=== PATIENT | female | born 1955 | race African-American/Black ===

== ENCOUNTER 2016-05-19 22:47 | Emergency (ER) | payer MEDICARE, OTHER ==
[~2016-05-19] VITALS: Ht 154.9 cm; Wt 56.7 kg
[~2016-05-19 22:47] MED LIST: AMLO10TA2 PO; AMLO5TAB4 PO; Albuterol Sulfate NEB; CELE200C PO; CYCL10TA2 PO; DICL75TA PO; ESCI10TA10 PO; LISI1TAB5 PO; MULT-18 PO; NITR0.4T6 SL; OMEP40CA5 PO; RANI150C PO; TRAZ100T12 PO
[2016-05-20] MEDS ORDERED: METOCLOPRAMIDE HCL 10 MG/2 ML VIAL. IV ONE (00:45)
[2016-05-20] MEDS ORDERED: IV NORMAL SALINE 1000ML BAG 1,000 ML IV SCH (00:45)
[2016-05-20] MEDS ORDERED: DIPHENHYDRAMINE 50 MG/ML VIAL IVP ONE (00:45)
[2016-05-20] MEDS ORDERED: FENTANYL PF 100 MCG/2 ML VIAL. IV ONE (00:45)
[2016-05-20 00:53] LABS: BASO % 1 % (0-3); EOS % 0 % (0-3); HEMATOCRIT 41.2 % (36.0-47.0); HEMOGLOBIN 13.4 g/dL (12.0-15.5); LYMPH # 1.4 x10^3/uL (1.0-4.8); LYMPH % 19 % (24-48); MEAN CORPUSCULAR HEMOGLOBIN 29 pg (25-35); MEAN CORPUSCULAR HGB CONC 32 g/dL (31-37); MEAN CORPUSCULAR VOLUME 90 fL (79-100); MONO % 12 % (0-9); NEUT % 68 % (31-73); PLATELET COUNT 246 x10^3/uL (140-400); RED BLOOD COUNT 4.58 x10^6/uL (3.50-5.40); RED CELL DISTRIBUTION WIDTH 15.4 % (11.5-14.5); WHITE BLOOD COUNT 7.2 x10^3/uL (4.0-11.0)
[2016-05-20 00:54] LABS: BILIRUBIN,URINE NEGATIVE (NEG); GLUCOSE,URINE NEGATIVE (NEG); NITRITE,URINE NEGATIVE (NEG); PROTEIN,URINE 100 mg/dL (NEG-TRACE); UROBILINOGEN,URINE 0.2 mg/dL (0.2 mg/dL)
[2016-05-20 01:00] LABS: BARBITURATES NEG (NEG); BENZODIAZEPINES NEG (NEG); CANNABINOIDS POS (NEG); COCAINE NEG (NEG); ETHANOL, URINE NEG (NEG); METHADONE NEG (NEG); OPIATES NEG (NEG); PHENCYCLIDINE NEG (NEG)
[2016-05-20 01:14] LABS: WBC,URINE OCC /HPF (0-4)
[2016-05-20 01:15] LABS: BACTERIA,URINE 0 /HPF (0-FEW); SQUAMOUS EPITHELIAL CELL,UR FEW /LPF
--- NOTE | 2016-05-20 01:25 | PHYS DOC ---
Past Medical History Past Medical History: High Cholesterol, Hypertension, Sciatica Additional Past Medical Histor: uterine fibroids Past Surgical History: Other Additional Past Surgical Histo: bowel resection Alcohol Use: Occasionally Drug Use: Marijuana Adult General Chief Complaint Chief Complaint: NAUSEA/VOMITING/DIARRHA HPI HPI Patient is a 60 year old female who presents the emergency room with a complaint of left-sided abdominal pain, nausea and vomiting that began approximately 24 hours ago. She also has a complaint of a rash on her left thigh. Patient is not very knowledgeable as to her health history. She states that she had a colon resection approximate 6 years ago. She does not know why she had to have a colon resection. She denies any known history of bowel obstructions. She denies any other abdominal surgeries. Patient denies bloody or bilious emesis. She reports persistent nausea. She denies flank pain, dysuria or hematuria. She denies diarrhea or constipation. Last by mouth intake was approximately 9 PM. Last bowel movement was approximately 4 PM. Review of Systems Review of Systems Constitutional: Denies fever or chills [] Eyes: Denies change in visual acuity, redness, or eye pain [] HENT: Denies nasal congestion or sore throat [] Respiratory: Denies cough or shortness of breath [] Cardiovascular: No additional information not addressed in HPI [] GI: Denies abdominal pain, nausea, vomiting, bloody stools or diarrhea [] : Denies dysuria or hematuria [] Musculoskeletal: Denies back pain or joint pain [] Integument: Denies rash or skin lesions [] Neurologic: Denies headache, focal weakness or sensory changes [] Endocrine: Denies polyuria or polydipsia [] Current Medications Current Medications Current Medications Medications (Trade) Dose Ordered Sig/[facility] Start Time Stop Time Status Last Admin Dose Admin Diphenhydramine HCl (Benadryl) 25 mg 1X ONCE 05/20/16 00:45 05/20/16 00:46 DC 05/20/16 00:43 25 MG Fentanyl Citrate (Fentanyl 2ml Vial) 50 mcg 1X ONCE 05/20/16 00:45 05/20/16 00:46 DC 05/20/16 00:42 50 MCG Metoclopramide HCl (Reglan) 10 mg 1X ONCE 05/20/16 00:45 05/20/16 00:46 DC 05/20/16 00:43 10 MG Potassium Chloride (Klor-Con) 40 meq 1X ONCE 05/20/16 02:00 05/20/16 02:01 Sodium Chloride (Iv Sodium Chloride 0.9% 1000ml Bag) 1,000 ml @ 1,000 mls/hr Q1H 05/20/16 00:45 05/20/16 01:44 DC 05/20/16 00:43 1,000 MLS/HR Allergies Allergies Allergies Coded Allergies Type Severity Reaction Last Updated Verified codeine Allergy Severe codeine 12/31/14 Yes Physical Exam Physical Exam Constitutional: Well developed, well nourished, mild distress, non-toxic appearance. Patient strike evening. Patient does occasionally produce some clear mucus that she says is coming from her stomach. HENT: Normocephalic, atraumatic, bilateral external ears normal, oropharynx moist, no oral exudates, nose normal. [] Eyes: PERRLA, EOMI, conjunctiva normal, no discharge. [] Neck: Normal range of motion, no tenderness, supple, no stridor. [] Cardiovascular:Heart rate regular rhythm, no murmur [] Lungs & Thorax: Bilateral breath sounds clear to auscultation [] Abdomen: Abdomen is soft and nondistended. There are normoactive bowel sounds in all 4 quadrants. There is no palpable defect to the abdominal wall or pulsatile mass. Patient complains of pain in the left upper and lower quadrants with palpation. There is voluntary guarding during physical exam. Patient denies rebound. Negative heel tap. Skin: Approximate silver dollar sized cluster of vesicular lesions to patient's left anterior thigh below the inguinal crease. There is a slightly erythematous base. There is no purulent drainage, indurated tissue or lymphangitis associated with this. Back: Back is normal in appearance. Negative CVA tenderness. Extremities: No tenderness, no cyanosis, no clubbing, ROM intact, no edema. [] Neurologic: Alert and oriented X 3, normal motor function, normal sensory function, no focal deficits noted. [] Psychologic: Affect normal, judgement normal, mood normal. [] Current Patient Data Vital Signs Vital Signs Date Time Temp Pulse Resp B/P Pulse Ox O2 Delivery O2 Flow Rate FiO2 05/20/16 00:42 16 Room Air 05/19/16 22:50 99.8 67 181/84 100 99.8 Lab Values Laboratory Tests Test 05/19/16 23:03 05/19/16 23:15 05/20/16 01:15 White Blood Count 7.2x10^3/uL (4.0-11.0) Red Blood Count 4.58x10^6/uL (3.50-5.40) Hemoglobin 13.4g/dL (12.0-15.5) Hematocrit 41.2% (36.0-47.0) Mean Corpuscular Volume 90fL (79-100) Mean Corpuscular Hemoglobin 29pg (25-35) Mean Corpuscular Hemoglobin Concent 32g/dL (31-37) Red Cell Distribution Width 15.4% (11.5-14.5) H Platelet Count 246x10^3/uL (140-400) Neutrophils (%) (Auto) 68% (31-73) Lymphocytes (%) (Auto) 19% (24-48) L Monocytes (%) (Auto) 12% (0-9) H Eosinophils (%) (Auto) 0% (0-3) Basophils (%) (Auto) 1% (0-3) Neutrophils # (Auto) 4.9x10^3uL (1.8-7.7) Lymphocytes # (Auto) 1.4x10^3/uL (1.0-4.8) Monocytes # (Auto) 0.9x10^3/uL (0.0-1.1) Eosinophils # (Auto) 0.0x10^3/uL (0.0-0.7) Basophils # (Auto) 0.0x10^3/uL (0.0-0.2) Urine Collection Type Unknown Urine Color Yellow Urine Clarity Clear Urine pH 6.0 Urine Specific [place] 1.015 Urine Protein 100mg/dL (NEG-TRACE) Urine Glucose (UA) Negativemg/dL (NEG) Urine Ketones (Stick) Tracemg/dL (NEG) Urine Blood Small (NEG) Urine Nitrite Negative (NEG) Urine Bilirubin Negative (NEG) Urine Urobilinogen Dipstick 0.2mg/dL (0.2 mg/dL) Urine Leukocyte Esterase Negative (NEG) Urine RBC 6-10/HPF (0-2) Urine WBC Occ/HPF (0-4) Urine Squamous Epithelial Cells Few/LPF Urine Bacteria 0/HPF (0-FEW) Urine Hyaline Casts Few/HPF Urine Mucus Mod/LPF Urine Opiates Screen Neg (NEG) Urine Methadone Screen Neg (NEG) Urine Barbiturates Neg (NEG) Urine Phencyclidine Screen Neg (NEG) Urine Amphetamine/Methamphetamine Neg (NEG) Urine Benzodiazepines Screen Neg (NEG) Urine Cocaine Screen Neg (NEG) Urine Cannabinoids Screen Pos (NEG) Urine Ethyl Alcohol Neg (NEG) Sodium Level 136mmol/L (136-145) Potassium Level 2.6mmol/L (3.5-5.1) *L Chloride Level 94mmol/L (98-107) L Carbon Dioxide Level 28mmol/L (21-32) Anion Gap 14 (6-14) Blood Urea Nitrogen 13mg/dL (7-20) Creatinine 0.9mg/dL (0.6-1.0) Estimated GFR (Cockcroft-Gault) 77.8 BUN/Creatinine Ratio 14 (6-20) Glucose Level 131mg/dL (70-99) H Calcium Level 10.2mg/dL (8.5-10.1) H Total Bilirubin 0.5mg/dL (0.2-1.0) Aspartate Amino Transferase (AST) 23U/L (15-37) Alanine Aminotransferase (ALT) 20U/L (14-59) Alkaline Phosphatase 72U/L (46-116) Total Protein 10.0g/dL (6.4-8.2) H Albumin 4.7g/dL (3.4-5.0) Albumin/Globulin Ratio 0.9 (1.0-1.7) L Lipase 122U/L (73-393) Laboratory Tests 05/19/16 23:03 Laboratory Tests 05/20/16 01:15 EKG EKG [] Radiology/Procedures Radiology/Procedures [] Course & Med Decision Making Course & Med Decision Making 0120: Case was staffed with Dr. Huntley. He is made aware of the patient's history and physical with tests been ordered. He will assume care of the patient at this time. Signout was obtained. CT report was reviewed. See CT scan of the abdomen and pelvis revealed no acute pathology. Patient's labs were all within normal limits except for potassium level of 2.6. Patient was given 40 of potassium here in the ED and will be sent home with a prescription for potassium for 5 days. I have instructed patient on dietary changes to help increase her potassium level. Patient's labs were all within normal limits otherwise except for positive urine drug screen for marijuana. Repeat examination her abdomen at 145 revealed a soft abdomen was currently with mild tenderness to her left lower quadrant. Patient had no rebound or guarding. Patient not exhibit any signs or symptoms of be consistent with an acute surgical abdomen at this time. Dragon Disclaimer Dragon Disclaimer This electronic medical record was generated, in whole or in part, using a voice recognition dictation system. Departure Departure Impression: Primary Impression: Abdominal pain Additional Impressions: Nausea and vomiting Vesicular rash Hypokalemia Referrals: TAYA DANIEL MD (PCP) Patient Instructions: Abdominal Pain, Hypokalemia Scripts Ondansetron (Zofran Odt)4 Mg Tab.rapdis1 Tab SL Q6HRS PRN NAUSEA #12 TAB Prov:NENA HUNTLEY MD 05/20/16 Potassium Chloride 10 Meq Capsule.er20 Meq PO twice a day #20 TAB.SR Prov:NENA HUNTLEY MD 05/20/16 Problem Qualifiers DANTE ARCOS May 20, 2016 01:25 NENA HUNTLEY MD May 20, 2016 01:58
--- NOTE | 2016-05-20 01:35 | RAD ---
Examination: CT of the abdomen pelvis without contrast. HISTORY History of left-sided flank pain. COMPARISON 08/04/2015. TECHNIQUE Axial CT images of the abdomen pelvis were performed without contrast. Coronal sagittal reformats were performed. Exposure: One or more of the following dose reduction technique were utilized for this examination: 1. Automated exposure control. 2.Adjustment of MA and /or KV according to patient size. 3. Use of iterative reconstruction technique. Findings: The visualized bibasilar lungs grossly appears unremarkable. No evidence of free air identified in the abdomen. The evaluation of the solid organs is limited due to lack of IV contrast. The evaluation of the bowel is limited lack of oral contrast. There is a tiny 3 millimeter hypodensity in the right lobe of the liver, similar to prior exam, is too small to characterize. The gallbladder grossly appears unremarkable. The gallbladder is mildly distended upper of the visualized spleen, adrenals grossly appears unremarkable. The stomach is mildly distended. The visualized pancreas grossly appears unremarkable . The appendix grossly appears unremarkable. Multiple colonic diverticula identified throughout the colon. The urinary bladder is mildly distended. There is a calcified density identified in the region of the uterus measuring 3.9 x 3.1 centimeters likely a uterine fibroid, similar to prior exam. Few other calcified uterine fibroids identified. There is cortical calcification identified in the left kidney measuring 7 millimeters with minimal cortical irregularity probably due to scarring changes. No evidence of hydronephrosis. Sclerotic changes identified in the bilateral sacroiliac joint region likely due to degeneration. Moderate degenerative changes identified in the lumbar spine. Moderate aortic atherosclerosis. IMPRESSION - No acute intra-abdominal findings. - Left upper lobe renal cortical scarring changes with calcification grossly similar to prior exam. - Multiple colonic diverticula. - There is a tiny 3 millimeter hypodensity in the right lobe of the liver, similar to prior exam, is too small to characterize. Electronically signed by: Praful Goff (May 20, 2016 01:34:05)
[2016-05-20 01:37] LABS: ALBUMIN 4.7 g/dL (3.4-5.0); ALBUMIN/GLOBULIN RATIO 0.9 (1.0-1.7); CALCIUM 10.2 mg/dL (8.5-10.1); CREATININE 0.9 mg/dL (0.6-1.0); GFR 77.8; TOTAL BILIRUBIN 0.5 mg/dL (0.2-1.0)
[2016-05-20 01:39] LABS: POTASSIUM 2.6 mmol/L (3.5-5.1)
[2016-05-20 01:41] VITALS: BP 176/75
[2016-05-20] MEDS ORDERED: POTA10CA PO (01:58)
[2016-05-20] MEDS ORDERED: ONDA4TAB10 SL (01:58)
[2016-05-20] MEDS ORDERED: POTASSIUM CHLORIDE 20 MEQ TABLET.ER. PO ONE (02:00)
--- NOTE | 2016-05-20 07:04 | EKG ---
[facility] [address] [place] [address] Test Date: 2016-05-19 Test Time: 23:05:55 Pat Name: FIGUEROA LUNA Department: Room: Gender: F Prop Sawyer: : 1955 Requested By: NENA NYE Order Number: [id number] Reading MD: Gonzalo Meeks Measurements Intervals [place] Rate: 61 P: 30 MA: 158 QRS: 35 QRSD: 72 T: 30 QT: 452 QTc: 461 Interpretive Statements SINUS RHYTHM LEFT ATRIAL ABNORMALITY Electronically Signed On 05-20-2016 15:13:33 EMERGENCY DEPARTMENT NURSE by Gonzalo Meeks
== END 2016-05-20 02:09 | disposition home or self-care (01) ==
LOC: ER 22:47
DX: R10.12 Left upper quadrant pain (principal); R11.2 Nausea with vomiting, unspecified; R21 Rash and other nonspecific skin eruption; E87.6 Hypokalemia; E78.00 Pure hypercholesterolemia, unspecified; I10 Essential (primary) hypertension; F12.10 Cannabis abuse, uncomplicated; Z88.5 Allergy status to narcotic agent
CPT/HCPCS: 36415; 74176; 80053; 81001; 83690; 85027; 93005; 96361; 96374; 96375; 99285; G0481; J1200; J2765; J3010; J7030

== ENCOUNTER 2016-06-29 09:26 | Emergency (ER) | payer MEDICARE, OTHER ==
[~2016-06-29] VITALS: Ht 154.9 cm; Wt 56.2 kg
[~2016-06-29 09:26] MED LIST changes: +ONDA4TAB10 SL; +POTA10CA PO
[2016-06-29 10:13] VITALS: BP 149/65
[2016-06-29] MEDS ORDERED: FENTANYL PF 100 MCG/2 ML VIAL. IM ONE (10:30)
[2016-06-29] MEDS ORDERED: DEXAMETHASONE SOD PHOS 20 MG/5 ML VIAL. IM ONE (10:30)
[2016-06-29] MEDS ORDERED: KETOROLAC TROMETHAMINE 60 MG/2 ML SYRINGE. IM ONE (10:30)
[2016-06-29] MEDS ORDERED: CYCL10TA2 PO (11:51)
[2016-06-29] MEDS ORDERED: HYDR-971 PO (11:51)
--- NOTE | 2016-06-29 11:51 | PHYS DOC ---
Past Medical History Past Medical History: High Cholesterol, Hypertension, Sciatica Additional Past Medical Histor: uterine fibroids Past Surgical History: Other Additional Past Surgical Histo: bowel resection Alcohol Use: Occasionally Drug Use: Marijuana Adult General Chief Complaint Chief Complaint: BACK PAIN - NO INJURY HPI HPI Patient is a 60 year old female with history of left low back pain, sciatic pain, hypertension, high cholesterol, who presents today with left low back pain radiating into the left lower extremity that began 3 days ago. Patient states she takes Ultram for this pain and has tried taking it with no relief. Patient denies any injury. She states the pain is severe enough that sometimes the boyfriend has to carry her so that she doesn't put weight on her extremities. Patient is very tearful in the ED. Patient denies any loss of bowel bladder function, she states she has an appointment with her PCP on July 02, 2016. Review of Systems Review of Systems Constitutional: Denies fever or chills [] GI: Denies abdominal pain, nausea, vomiting, bloody stools or diarrhea [] : Denies dysuria or hematuria [] Musculoskeletal: back pain Integument: Denies rash or skin lesions [] Neurologic: Denies headache, focal weakness or sensory changes [] Endocrine: Denies polyuria or polydipsia [] Current Medications Current Medications Current Medications Medications (Trade) Dose Ordered Sig/[facility] Start Time Stop Time Status Last Admin Dose Admin Dexamethasone Sodium Phosphate (Decadron) 10 mg 1X ONCE 06/29/16 10:30 06/29/16 10:31 DC 06/29/16 11:11 10 MG Fentanyl Citrate (Fentanyl 2ml Vial) 50 mcg 1X ONCE 06/29/16 10:30 06/29/16 10:31 DC 06/29/16 11:11 50 MCG Ketorolac Tromethamine (Toradol Im) 60 mg 1X ONCE 06/29/16 10:30 06/29/16 10:31 DC 06/29/16 11:10 60 MG Allergies Allergies Allergies Coded Allergies Type Severity Reaction Last Updated Verified codeine Allergy Severe codeine 12/31/14 Yes Physical Exam Physical Exam Constitutional: Well developed, well nourished, no acute distress, non-toxic appearance. [] Abdomen: Bowel sounds normal, soft, no tenderness, no masses, no pulsatile masses. [] Skin: Warm, dry, no erythema, no rash. [] Back: Diffuse tenderness paraspinal muscles of the left lumbar region worse on the left SI joint, no midline tenderness, no CVA tenderness. Positive left leg straight raises. Extremities: No tenderness, no cyanosis, no clubbing, ROM intact, no edema. [] Neurologic: Alert and oriented X 3, normal motor function, normal sensory function, no focal deficits noted. [] Psychologic: Affect normal, judgement normal, mood normal. [] Current Patient Data Vital Signs Vital Signs Date Time Temp Pulse Resp B/P Pulse Ox O2 Delivery O2 Flow Rate FiO2 06/29/16 10:13 98.2 74 18 97 Room Air 98.2 EKG EKG [] Radiology/Procedures Radiology/Procedures [] Course & Med Decision Making Course & Med Decision Making Pertinent Labs and Imaging studies reviewed. (See chart for details) Patient is in the ED with exacerbation of chronic back pain with sciatica. She is currently on Ultram, she has an appointment with Dr. Scot Gillespie on June. We discharged her home with a very short supply of pain medicine and she will follow up with her PCP in 3 days. We provided her return precautions. Discharged in stable condition. Dragon Disclaimer Dragon Disclaimer This electronic medical record was generated, in whole or in part, using a voice recognition dictation system. Departure Departure Impression: Primary Impression: Sciatica Additional Impression: Chronic back pain Disposition: 01 HOME, SELF-CARE Condition: STABLE Referrals: TAYA CALLAHAN MD (PCP) Follow-up with your doctor on July 02, 2016 as scheduled Patient Instructions: Sciatica with [facility] Additional Instructions: You were seen for sciatic back pain. Follow-up with the doctor on July 02, 2016 as scheduled. Come back to the ED if symptoms worsen or you have any loss of bowel or bladder function. Scripts Cyclobenzaprine Hcl 10 Mg Tablet1 Tab PO TID #30 TAB Prov:MUTUNGAPENELOPE DIRECTOR HEMATOLOGY 06/29/16 Hydrocodone/Apap 5-325 ([place] 5-325 Tablet)1 Each Tablet1-2 Tab PO Q4-6HRS #10 TAB Prov:JERICHOUNGAPENELOPE DIRECTOR HEMATOLOGY 06/29/16 Problem Qualifiers Primary Impression: Sciatica Laterality: left Qualified Code: M54.32 - Sciatica, left side Additional Impression: Chronic back pain Back pain location: low back pain Back pain laterality: left Sciatica presence: with sciatica Sciatica laterality: sciatica of left side Qualified Code: M54.42 - Lumbago with sciatica, left side PENELOPE WEBER APRN Jun 29, 2016 11:51
== END 2016-06-29 12:01 | disposition home or self-care (01) ==
LOC: ER 09:26
DX: G89.29 Other chronic pain (principal); M54.42 Lumbago with sciatica, left side; E78.00 Pure hypercholesterolemia, unspecified; I10 Essential (primary) hypertension; F12.10 Cannabis abuse, uncomplicated; Z88.5 Allergy status to narcotic agent
CPT/HCPCS: 96372; 99284; J1100; J1885; J3010

== ENCOUNTER → 2016-07-08 | Outpatient (CLI) | payer MEDICARE, OTHER ==
[2016-06-29 10:13] VITALS: BP 149/65
[~2016-07-08] MED LIST changes: +HYDR-971 PO
--- NOTE | 2016-07-08 16:01 | KCIC ---
PROCEDURE MRI lumbar spine without contrast. HISTORY Acute left side low back pain, sciatica, urinary incontinence, pain into the left leg for 6 weeks TECHNIQUE Multiplanar, multi sequential non contrast MR imaging was performed of the lumbar spine. COMPARISON None FINDINGS Lumbar vertebral body stature is adequate. There is negligible anterior spondylolisthesis at L5-S1 at which there is facet degenerative change. There is nonspecific heterogeneity of the marrow signal. There is mild edema of the anterior L1-2 endplates and also at T11-12 probably reactive/degenerative in etiology, also minimally on the right superiorly of L4. There is mild degenerative disc disease L5-S1. There is nonspecific edema about the left L5-S1 facet articulation probably reactive/degenerative in etiology, no fluid of the facet articulation. There is low signal about the visualized right sacroiliac joint. L2-3: Spinal canal and neural foramina are adequate. L3-4: Neural foramina and spinal canal are adequate. L4-5: There is mild facet hypertrophic change. Spinal canal and neural foramina are adequate. L5-S1: There is moderate facet hypertrophic change. Spinal canal and neural foramina are adequate. IMPRESSION 1. There is no significant lumbar spinal stenosis or neural foramina compromise. There is mild degenerative disc disease greater anteriorly at L5-S1. There is negligible anterior spondylolisthesis at L5-S1 due to facet degenerative change. Edema about the left L5-S1 facet articulation and minimally about endplates as stated is probably reactive/degenerative in etiology. 2. There is nonspecific heterogeneity of the marrow signal. Findings could be due to hyperplastic red marrow as can be associated with chronic or systemic stress reaction or hypoxia. 3. There is nonspecific likely sclerosis about the visualized right sacroiliac joint. Electronically signed by: Chinedu Magana MD (Jul 08, 2016 16:00:07)
== END | disposition home or self-care (01) ==
LOC: KCIC MRI 14:56
PROVIDERS: ATTEND Family Medicine
DX: M43.17 Spondylolisthesis, lumbosacral region (principal); R32 Unspecified urinary incontinence; R60.9 Edema, unspecified; M51.37 Other intervertebral disc degeneration, lumbosacral region
CPT/HCPCS: 72148

== ENCOUNTER → 2016-08-10 | Outpatient (CLI) | payer MEDICARE, OTHER ==
[~2016-08-10] MED LIST changes: +ATOR40TA59 PO; +CHOL500024 PO; +IOHEXOL 180 MG/ML 10 ML VIAL. ONE; +MIRT15TA3 PO; +methylPREDNISolone ACETATE 40 MG/ML VIAL. ONE; +methylPREDNISolone ACETATE 80 MG/ML VIAL. ONE
--- NOTE | 2016-08-11 00:10 | CONS ---
DATE OF CONSULTATION: 08/10/2016 CHIEF COMPLAINT: Low back and left lower extremity pain. HISTORY OF PRESENT ILLNESS: This is a 60-year-old female who presents with history of pain after shingles outbreak on 06/21/2016. The patient reports that after about a week she went to her primary care physician and got Valtrex, took this, decreased the rash and the pain to some extent, but the pain has been persistent now. Since that time, the patient reports it is tender to touch mostly on the left side of her leg, back, hip on the left side as well, mostly in the lateral and anterior aspect of the left thigh to the medial knee and medial lower leg. The patient reports there is some numbness sensation that is tender to touch with throbbing, tingling, intermittent in intensity, but always there and burning. The rash has decreased to some extent, but the pain is still there. The patient reports it wakes her from sleep at least 2 times at night, causes some increased urinary frequency, but no incontinence. The patient reports she has been using a cane or walker in her left hand and she has that with her today. The patient reports she did do physical therapy, 6 visits at her home in July and June of this year, which did not help significantly, also been doing some exercises on her own. She did have an MRI scan of the lumbar spine showing mild degenerative disk disease, clear anteriorly at L5-S1 with negligible anterior spondylolisthesis at L5-S1 due to degenerative facet change and edema ____ L5-S1 facet articulation. Otherwise, no significant lumbar stenosis noted. The patient reports her disability rate from 0-10, 10 being the worst, as a 10 in all categories, family and home responsibilities, recreation, social activity, occupation, sexual behavior, self-care and life support activities. She has tried mirtazapine, atorvastatin, and trazodone, none of these helped the pain to any significant extent. PAST MEDICAL HISTORY: Significant for hypertension, insomnia, arthritis, and headaches. PREVIOUS SURGERY: Include bowel resection, partial in 2014. CURRENT MEDICATIONS: Include atorvastatin, mirtazapine, trazodone, Zofran and vitamin D3, also, ibuprofen. ALLERGIES: The patient has no known drug allergies. SOCIAL HISTORY: The patient drinks about 4 beers twice a month, does smoke some marijuana on occasion, but only rarely. Cigarettes, also has been smoking less than a pack a day, but for 20 years. The patient is single. Lives on her own in local apartments and lives locally in [place], [place]. REVIEW OF SYSTEMS: The patient's review of systems is positive for those items mentioned in history of present illness. All systems were reviewed and otherwise negative. It is complete, full and well documented on the patient's chart. PHYSICAL EXAMINATION: VITAL SIGNS: Today, the patient's blood pressure 129/75, pulse 61, respirations 20, temperature 98.2 degrees Fahrenheit, height is 5 feet 1 inch, and weight is 124 pounds. GENERAL: The patient is awake, alert, oriented, appropriate, very pleasant demeanor. HEENT: Head shows normocephalic and atraumatic. Extraocular movements are intact and symmetrical. Oral cavity, mucous membranes are moist and pink. Dentition is intact. NECK: Shows anterior throat supple without palpable lymphadenopathy noted. Swallow reflex is symmetrical. CHEST: Shows normal on inspection. Breath sounds are clear to auscultation bilaterally. HEART: Shows S1 and S2 clear. ABDOMEN: Soft, obese, nontender, and nondistended. No palpable organomegaly. No rebound or guarding demonstrated. BACK: The patient's back shows spine grossly midline, normal appearing thoracic kyphosis and lumbar lordotic curvature. No previous bruises, lesions, rashes or scars are noted. Lumbar paraspinous muscle shows very minimal tenderness with palpation in the lower lumbar distribution, but only diffusely and bilaterally, otherwise is nontender. No tenderness over the sacrum, sacroiliac regions or the spinous processes. EXTREMITIES: The patient's lower extremities show increased hyperpigmentation rash on the left side starting at the left posterior superior gluteus into the low back and into the lateral thigh, medial thigh, posterior thigh, medial knee, medial lower leg, just below the knee and lateral to the knee as well, some hyperpigmentation is noted. No pustular lesions are noted. No raised rash, mainly just discoloration. The patient does have some tenderness and hyperesthesia over the left lateral thigh with light touch only. Right leg is normal in appearance. Motor exam is strong with 5/5 dorsiflexion, extension, quadriceps and hamstring flexion, equal and symmetrical. Peripheral pulses are 2+ posterior tibial and dorsalis pedis pulses. No peripheral edema is noted. No clubbing, no cyanosis except for the rash. Lower extremities are warm and dry to touch, equal in color and appearance. Straight leg raising is noted to be negative for reproduction of any radicular symptoms. IMPRESSION: 1. This is a 60-year-old female with history of shingles with postherpetic neuralgia persistent since 06/21/2016. 2. MRI scan of lumbar spine as noted. 3. Hypertension. 4. Arthritis. PLAN: Options were discussed with the patient including conservative medical management, physical therapy and interventional techniques. She would like to pursue interventional techniques. We discussed a lumbar epidural steroid injection to see if this may help the postherpetic neuralgia. Using description as well as anatomical models to describe the procedure, risks were then discussed including, but not limited to bleeding, infection, possibility of epidural hematoma, subsequent neurologic compromise, dural puncture, headaches, spinal cord and/or nerve damage, side effects of steroid medication and poor results regarding pain control. The patient understands and wishes to proceed. The patient will return to clinic in approximately 2 weeks for followup. He was counseled on return appointment, activity level and side effects to be aware of. DIAGNOSES: Lumbar spondylosis with post-herpetic neuralgia and lumbar degenerative disk disease. PROCEDURES: Lumbar epidural steroid injection, under sterile prep and drape using local anesthetic at the L4-L5, left paramedian translaminar approach with fluoroscopic guidance. MEDICATIONS INJECTED: Depo-Medrol 120 mg plus 10 mL of preservative free normal saline and 2 mL of Isovue for contrast. CONDITION AT DISCHARGE: Stable. The patient tolerated procedure well, had no complications. JAVIER BA MD DR: RADHIKA/reddy JOB#: [id number] / [id number] Eboni Fontenot MD
== END | disposition home or self-care (01) ==
LOC: PNCL 09:19
PROVIDERS: ATTEND Anesthesiology
DX: M51.36 Other intervertebral disc degeneration, lumbar region (principal); M47.816 Spondylosis without myelopathy or radiculopathy, lumbar region; M19.90 Unspecified osteoarthritis, unspecified site; I10 Essential (primary) hypertension; K21.9 Gastro-esophageal reflux disease without esophagitis; F41.9 Anxiety disorder, unspecified
CPT/HCPCS: 62323; J1030; J1040

== ENCOUNTER → 2016-08-24 | Outpatient (CLI) | payer MEDICARE, OTHER ==
[~2016-08-24] MED LIST changes: -IOHEXOL 180 MG/ML 10 ML VIAL. ONE; +PREG100C PO; -methylPREDNISolone ACETATE 40 MG/ML VIAL. ONE; -methylPREDNISolone ACETATE 80 MG/ML VIAL. ONE
--- NOTE | 2016-08-25 01:49 | PAIN ---
DATE OF SERVICE: 08/24/2016 DIAGNOSES: 1. Lumbar spondylosis, lumbar degenerative disk disease. 2. Postherpetic neuralgia, left L4 dermatome. HISTORY OF PRESENT ILLNESS: The patient is a 61-year-old female who returns for followup status post initial evaluation and lumbar epidural steroid injection x 1. The patient reports she did very well with this about 50% improvement overall and the postherpetic neuralgia and the pain better with some Lyrica that we started at 50 mg twice daily. The patient reports still some tingling and numbness in the left L4 distribution, but overall doing much better. The patient reports it can be as high as a 9 on a scale of 10 and least is a 7 on a scale of 10. I would like to hold on any further injections today as she feels that she is doing much better. We will increase her Lyrica accordingly. The patient reports no side effects with the medication. Otherwise, doing fairly well. No new motor or sensory deficits, no new bowel or bladder incontinence. The patient reports the pain is off and on, tingling, burning with some tenderness in the left leg much more noticeable than the low back pain. PHYSICAL EXAMINATION: VITAL SIGNS: The patient's blood pressure is 164/71, pulse 78, respirations are 20, temperature is 98.4 degrees Fahrenheit, height is 5 feet 1 inch, weight is 123 pounds. GENERAL: The patient is awake, alert, oriented, appropriate, very pleasant demeanor. HEENT: Head shows normocephalic, atraumatic. Extraocular movements are intact and symmetrical. Oral cavity shows mucous membranes are moist and pink. Dentition is intact. NECK: Shows anterior throat supple without palpable lymphadenopathy noted. Swallow reflex is symmetrical. Neck shows full rotational motion of the cervical spine without difficulty. CHEST: Shows normal with inspection. Breath sounds clear to auscultation bilaterally. HEART: Shows S1 and S2 clear. No murmurs auscultated. ABDOMEN: Obese, soft, nontender, nondistended. No palpable organomegaly is noted. BACK: Shows spine grossly in the midline. Lumbar paraspinous musculature shows some very mild tenderness with palpation diffusely in the lower lumbar distribution, but without asymmetry. Good rotational motion both laterally as well as extension and flexion of lumbar spine without difficulty. EXTREMITIES: The patient's lower extremities showed deep tendon reflexes at 2+ patellar, 1+ tendo calcaneus tendons. Motor exam is strong with 5/5 dorsiflexion, extension, quadriceps and hamstring flexion and equal and symmetrical. Options were discussed with the patient and the patient's old chart was reviewed as her current medication regimen updated. Current review of systems updated to date as well and we will hold on any further injections at this time. We increased her Lyrica from 50 mg to 100 mg twice daily. The patient was given instructions as well as side effects to be aware of with the medication and will followup in approximately 2 weeks if not significantly improved. We did discuss the potential of repeat injection at that time, but she would like to see how the pain does first. We will have her return at that time or sooner if necessary. The patient was given instructions as well as side effects to be aware of with medication and will followup as scheduled. JAVIER BA MD DR: RADHIKA/reddy JOB#: [id number] / [id number]
== END | disposition home or self-care (01) ==
LOC: PNCL 09:10
PROVIDERS: ATTEND Anesthesiology
DX: M51.36 Other intervertebral disc degeneration, lumbar region (principal); B02.29 Other postherpetic nervous system involvement
CPT/HCPCS: G0463

== ENCOUNTER → 2016-09-07 | Outpatient (CLI) | payer MEDICARE, OTHER ==
[~2016-09-07] MED LIST changes: +IOHEXOL 180 MG/ML 10 ML VIAL. ONE; -POTA10CA PO; +POTASSIUM CHLO10 MEQ PO; +methylPREDNISolone ACETATE 40 MG/ML VIAL. ONE; +methylPREDNISolone ACETATE 80 MG/ML VIAL. ONE
--- NOTE | 2016-09-07 17:26 | PAIN ---
DATE OF SERVICE: 09/07/2016 DIAGNOSES: 1. Lumbar spondylosis with lumbar degenerative disk disease. 2. Postherpetic neuralgia, left HISTORY OF PRESENT ILLNESS: This is a 61-year-old female, who returns for followup status post lumbar epidural steroid injection x 1. The patient is doing about 50% better. We held off any injections during her last visit, increased her Lyrica to 100 mg b.i.d., reports this is helping fairly significantly. The patient reports she is doing better overall, has small increase, but about 50% overall, still the patient reports some pain in to the left leg and lower leg with some numbness and tingling in the thigh and lower legs on and off sensation, but can be as high as a 9 on a scale of 10 when she is walking. She is noticing some weakness in the left leg when she is ambulating as well, but without any actual loss of motor function. The patient reports no new motor or sensory deficits, no new bowel or bladder incontinence or other complaints. PHYSICAL EXAMINATION: VITAL SIGNS: Today, the patient's blood pressure is 113/66, pulse 59, respirations are 16, temperature 98.3 degrees Fahrenheit, height is 5 feet 1 inch, weight 127 pounds. GENERAL: The patient is awake, alert, oriented, appropriate, very pleasant demeanor. HEENT: Head shows normocephalic, atraumatic. Extraocular movements are intact and symmetrical. Oral cavity, mucous membranes are moist and pink. Dentition is intact. NECK: Shows anterior throat supple without palpable lymphadenopathy noted. Swallow reflex is symmetrical. CHEST: Shows normal on inspection. Breath sounds are clear to auscultation bilaterally. HEART: Shows S1 and S2 clear. ABDOMEN: Soft, nontender, nondistended. No palpable organomegaly is noted. No rebound or guarding demonstrated. BACK: The patient's back shows spine grossly in midline with lumbar paraspinous musculature shows symmetrical. On inspection with palpation shows some moderate tenderness in the low lumbar distribution, again without radiation. EXTREMITIES: Lower extremities show deep tendon reflexes at 2+ in the patellar, 1+ tendo-calcaneus tendons are equal. Motor exam is strong with dorsiflexion, extension at 5/5. Options were discussed with the patient. At this time, the patient's old chart was reviewed as her current medication regimen updated. Current review of systems updated today as well. We will plan for a second lumbar epidural steroid injection today fluoroscopic guidance. Risks were again discussed including, but not limited to bleeding, infection, possibility of epidural hematoma and subsequent neurologic compromise, dural puncture, headaches, spinal cord and/or nerve damage, side effects of steroid medication, and poor results regarding pain control. The patient understands and wishes to proceed. The patient will return to the clinic in approximately 2 weeks for followup, and was counseled on return appointment, activity level, and side effects to be aware of. DIAGNOSES: Lumbar spondylosis, lumbar degenerative disease. PROCEDURE: Lumbar epidural steroid injection in translaminar approach at the L4-L5 level using C-arm fluoroscopic guidance under sterile prep and drape using local anesthetic. MEDICATIONS INJECTED: Depo-Medrol 120 mg with 10 mL preservative-free normal saline and 2 mL of Isovue for contrast. CONDITION AT DISCHARGE: Stable. The patient tolerated the procedure well, had no complications. JAVIER BA MD DR: RADHIKA/reddy JOB#: [id number] / [id number]
== END | disposition home or self-care (01) ==
LOC: PNCL 09:53
PROVIDERS: ATTEND Anesthesiology
DX: M51.36 Other intervertebral disc degeneration, lumbar region (principal); M47.816 Spondylosis without myelopathy or radiculopathy, lumbar region; I10 Essential (primary) hypertension; K21.9 Gastro-esophageal reflux disease without esophagitis; F41.9 Anxiety disorder, unspecified
CPT/HCPCS: 62323; J1030; J1040

== ENCOUNTER → 2017-01-04 | Outpatient (CLI) | payer MEDICARE, OTHER, MEDICAID ==
[~2017-01-04] MED LIST changes: -ESCI10TA10 PO; -IOHEXOL 180 MG/ML 10 ML VIAL. ONE; +LEXAPRO10 MG PO; +NITR0.4T22 SL; -NITR0.4T6 SL; -methylPREDNISolone ACETATE 40 MG/ML VIAL. ONE; -methylPREDNISolone ACETATE 80 MG/ML VIAL. ONE
--- NOTE | 2017-01-04 13:11 | RAD ---
DATE: 01/04/2017 EXAM: DIGITAL SCREEN BILAT W/CAD HISTORY: Routine screening COMPARISON: None available This study was interpreted with the benefit of Computerized Aided Detection (CAD). The breast parenchyma is heterogeneously dense, which could reduce sensitivity of mammography. Breast parenchyma level C. FINDINGS: There are numerous coarse and scattered benign type calcifications in both breasts. No suspicious breast densities are seen. Benign-appearing lymph node type densities are evident in the right axillary region. IMPRESSION: There is no mammographic evidence of malignancy in either breast. BI-RADS CATEGORY: 2 BENIGN FINDING(S) RECOMMENDED FOLLOW-UP: 12M 12 MONTH FOLLOW-UP PQRS compliance statement: Patient information was entered into a reminder system with a target due date for the next mammogram. Mammography is a sensitive method for finding small breast cancers, but it does not detect them all and is not a substitute for careful clinical examination. A negative mammogram does not negate a clinically suspicious finding and should not result in delay in biopsying a clinically suspicious abnormality. "Our facility is accredited by the [employer] Mammography Program."
== END | disposition home or self-care (01) ==
LOC: MAMMO 12:29
PROVIDERS: ATTEND Family Medicine
DX: Z12.31 Encounter for screening mammogram for malignant neoplasm of breast (principal)
CPT/HCPCS: G0202; 77067

== ENCOUNTER 2017-04-12 08:18 | Inpatient (IN) | payer MEDICARE, MEDICAID ==
[~2017-04-12] VITALS: Ht 152.4 cm; Wt 61.7 kg
[2017-04-12] MEDS ORDERED: MORPHINE SULFATE 4 MG/ML DISP.SYRIN. IV ONE ×2 (08:45→10:45)
[2017-04-12] MEDS ORDERED: ONDANSETRON PF 4 MG/2 ML VIAL. IV ONE (08:45)
--- NOTE | 2017-04-12 08:45 | PHYS DOC ---
Past Medical History Past Medical History: High Cholesterol, Hypertension, Sciatica Additional Past Medical Histor: uterine fibroids Past Surgical History: Other Additional Past Surgical Histo: bowel resection Alcohol Use: Occasionally Drug Use: Marijuana Adult General Chief Complaint Chief Complaint: ABDOMINAL PAIN HPI HPI Patient is a 61 year old female with a history of diverticulitis and colon resection presents to the ED complaining of abdominal pain 4 days. Patient states she has not had a stool in 4-5 days. States she took a laxative yesterday and had a small hard stool. Describes the pain as sharp. Rates the pain as 7/10. States the pain is not due to her normal constipation. States same symptoms with previous episodes of diverticulitis. Denies nausea/vomiting, blood in stool, dizziness, weakness, chest pain, shortness of breath, headache or fever. Review of Systems Review of Systems Constitutional: Denies fever or chills [] Eyes: Denies change in visual acuity, redness, or eye pain [] HENT: Denies nasal congestion or sore throat [] Respiratory: Denies cough or shortness of breath [] Cardiovascular: No additional information not addressed in HPI [] GI: Complains of abdominal pain. Denies nausea, vomiting, bloody stools or diarrhea [] : Denies dysuria or hematuria [] Musculoskeletal: Denies back pain or joint pain [] Integument: Denies rash or skin lesions [] Neurologic: Denies headache, focal weakness or sensory changes [] Endocrine: Denies polyuria or polydipsia [] All other systems were reviewed and found to be within normal limits, except as documented in this note. Current Medications Current Medications Current Medications Medications (Trade) Dose Ordered Sig/Lyndsey Start Time Stop Time Status Last Admin Dose Admin Info (Do NOT chart on this entry -- for MONITORING) 1 each PRN DAILY PRN 04/12/17 09:30 04/14/17 09:29 Iohexol (Omnipaque 300 Mg/ml) 75 ml 1X ONCE 04/12/17 09:30 04/12/17 09:31 DC 04/12/17 09:55 75 ML Morphine Sulfate 4 mg 1X ONCE 04/12/17 10:45 04/12/17 10:46 DC 04/12/17 10:54 4 MG Ondansetron HCl (Zofran) 4 mg 1X ONCE 04/12/17 08:45 04/12/17 08:46 DC 04/12/17 08:54 4 MG Allergies Allergies Allergies Coded Allergies Type Severity Reaction Last Updated Verified codeine Allergy Severe codeine 12/31/14 Yes Physical Exam Physical Exam Constitutional: Well developed, well nourished, no acute distress, non-toxic appearance. [] HENT: Normocephalic, atraumatic, bilateral external ears normal, oropharynx moist, no oral exudates, nose normal. [] Eyes: PERRLA, EOMI, conjunctiva normal, no discharge. [] Neck: Normal range of motion, no tenderness, supple, no stridor. [] Cardiovascular:Heart rate regular rhythm, no murmur [] Lungs & Thorax: Bilateral breath sounds clear to auscultation [] Abdomen: Bowel sounds normal, soft, MILD DIFFUSE LOWER ABDOMINAL TENDERNESS, no masses, no pulsatile masses. [] Skin: Warm, dry, no erythema, no rash. [] Back: No tenderness, no CVA tenderness. [] Extremities: No tenderness, no cyanosis, no clubbing, ROM intact, no edema. [] Neurologic: Alert and oriented X 3, normal motor function, normal sensory function, no focal deficits noted. [] Psychologic: Affect normal, judgement normal, mood normal. [] Current Patient Data Vital Signs Vital Signs Date Time Temp Pulse Resp B/P (MAP) Pulse Ox O2 Delivery O2 Flow Rate FiO2 04/12/17 09:30 46 20 135/61 (85) 100 04/12/17 08:37 97.8 Room Air 97.8 Lab Values Laboratory Tests Test 04/12/17 08:25 04/12/17 08:45 Urine Collection Type Unknown Urine Color Yellow Urine Clarity Cloudy Urine pH 6.0 Urine Specific [place] 1.020 Urine Protein Negative mg/dL (NEG-TRACE) Urine Glucose (UA) Negative mg/dL (NEG) Urine Ketones (Stick) Negative mg/dL (NEG) Urine Blood Negative (NEG) Urine Nitrite Negative (NEG) Urine Bilirubin Negative (NEG) Urine Urobilinogen Dipstick 0.2 mg/dL (0.2 mg/dL) Urine Leukocyte Esterase Negative (NEG) Urine RBC 0 /HPF (0-2) Urine WBC 0 /HPF (0-4) Urine Squamous Epithelial Cells Few /LPF Urine Bacteria 0 /HPF (0-FEW) Urine Hyaline Casts Occasional /HPF Urine Mucus Slight /LPF White Blood Count 6.9 x10^3/uL (4.0-11.0) Red Blood Count 4.53 x10^6/uL (3.50-5.40) Hemoglobin 13.0 g/dL (12.0-15.5) Hematocrit 40.2 % (36.0-47.0) Mean Corpuscular Volume 89 fL (79-100) Mean Corpuscular Hemoglobin 29 pg (25-35) Mean Corpuscular Hemoglobin Concent 32 g/dL (31-37) Red Cell Distribution Width 15.2 % (11.5-14.5) H Platelet Count 296 x10^3/uL (140-400) Sodium Level 141 mmol/L (136-145) Potassium Level 3.5 mmol/L (3.5-5.1) Chloride Level 105 mmol/L (98-107) Carbon Dioxide Level 26 mmol/L (21-32) Anion Gap 10 (6-14) Blood Urea Nitrogen 18 mg/dL (7-20) Creatinine 0.7 mg/dL (0.6-1.0) Estimated GFR (Cockcroft-Gault) 103.6 BUN/Creatinine Ratio 26 (6-20) H Glucose Level 113 mg/dL (70-99) H Calcium Level 8.7 mg/dL (8.5-10.1) Total Bilirubin 0.2 mg/dL (0.2-1.0) Aspartate Amino Transferase (AST) 15 U/L (15-37) Alanine Aminotransferase (ALT) 20 U/L (14-59) Alkaline Phosphatase 58 U/L (46-116) Total Protein 8.1 g/dL (6.4-8.2) Albumin 3.4 g/dL (3.4-5.0) Albumin/Globulin Ratio 0.7 (1.0-1.7) L Lipase 213 U/L (73-393) Laboratory Tests 04/12/17 08:45 Laboratory Tests 04/12/17 08:45 EKG EKG [] Radiology/Procedures Radiology/Procedures PROCEDURE: CT ABD PELV W/ IV CONTRST ONLY CT scan of the abdomen and pelvis with contrast 04/12/2017 Clinical history: Diffuse abdominal tenderness. Technique: After the intravenous administration of 75 cc of Omnipaque 300, contiguous, 5 mm axial sections were obtained through the abdomen and pelvis. One or more of the following individualized dose reduction techniques were utilized for this study: 1. Automated exposure control. 2. Adjustment of the mA and/or kV according to patient size. 3. Use of iterative reconstruction technique. Findings: Comparison study due to was 05/20/2016. Images through the lung bases demonstrate mild cardiomegaly. Dependent subsegmental atelectasis is seen involving both lower lobes. Decreased attenuation of the liver parenchyma is seen consistent with mild fatty infiltration. A 7 mm rounded low-attenuation lesion is seen involving the right lobe of the liver which likely represents a hepatic cyst. It is unchanged. The spleen, pancreas, adrenal glands and kidneys are within normal limits. Moderate atherosclerotic calcification of the abdominal aorta is seen. The abdominal aorta tapers normally. The gallbladder is well-distended. No free fluid or free air is seen within the abdomen. There is no evidence of bowel obstruction. The appendix is well visualized and is within normal limits. Multiple diverticula are seen involving the colon. No inflammatory changes are seen in the adjacent fat. Images through the pelvis demonstrate urinary bladder distended with urine. A 3.5 cm partially calcified fibroid is seen involving the uterus, unchanged. No adnexal mass is noted. No free fluid is seen. Calcifications are seen within the pelvis consistent with phleboliths. Degenerative changes are seen involving the lower thoracic and throughout the lumbar spine and both hips. Impression: No acute abnormality is seen. [] Course & Med Decision Making Course & Med Decision Making Pertinent Labs and Imaging studies reviewed. (See chart for details) []Patients continuing to have pain. Will admit for GI evaluation and pain control. Discussed case with patients PCP, Dr. Callahan. Agrees to admission and further management of patient. Patient stable for admission. Dragon Disclaimer Dragon Disclaimer This electronic medical record was generated, in whole or in part, using a voice recognition dictation system. Departure Departure Impression: Primary Impression: Abdominal pain Additional Impression: Fibroids Disposition: ADMITTED INPATIENT Admitting Physician: Other (Taya Callahan) Condition: STABLE Referrals: TAYA CALLAHAN MD (PCP) Problem Qualifiers BEATA RODRIGUEZ Apr 12, 2017 08:45
[2017-04-12 08:54] LABS: BILIRUBIN,URINE NEGATIVE (NEG); GLUCOSE,URINE NEGATIVE (NEG); NITRITE,URINE NEGATIVE (NEG); PROTEIN,URINE NEGATIVE (NEG-TRACE); UROBILINOGEN,URINE 0.2 mg/dL (0.2 mg/dL)
[2017-04-12 08:59] LABS: HEMATOCRIT 40.2 % (36.0-47.0); RED BLOOD COUNT 4.53 x10^6/uL (3.50-5.40); RED CELL DISTRIBUTION WIDTH 15.2 % (11.5-14.5); WHITE BLOOD COUNT 6.9 x10^3/uL (4.0-11.0)
[2017-04-12 09:07] LABS: BACTERIA,URINE 0 /HPF (0-FEW); RBC,URINE 0 /HPF (0-2); SQUAMOUS EPITHELIAL CELL,UR FEW /LPF; WBC,URINE 0 /HPF (0-4)
[2017-04-12 09:18] LABS: CALCIUM 8.7 mg/dL (8.5-10.1); CREATININE 0.7 mg/dL (0.6-1.0); GFR 103.6; POTASSIUM 3.5 mmol/L (3.5-5.1)
[2017-04-12 09:22] LABS: ALBUMIN 3.4 g/dL (3.4-5.0); ALBUMIN/GLOBULIN RATIO 0.7 (1.0-1.7); TOTAL BILIRUBIN 0.2 mg/dL (0.2-1.0); TOTAL PROTEIN 8.1 g/dL (6.4-8.2)
[2017-04-12] MEDS ORDERED: CONTRAST GIVEN MC PRN (09:30)
[2017-04-12] MEDS ORDERED: IOHEXOL 300 MG/ML 100ML VIAL. IV ONE (09:30)
--- NOTE | 2017-04-12 10:31 | RAD ---
CT scan of the abdomen and pelvis with contrast 04/12/2017 Clinical history: Diffuse abdominal tenderness. Technique: After the intravenous administration of 75 cc of Omnipaque 300, contiguous, 5 mm axial sections were obtained through the abdomen and pelvis. One or more of the following individualized dose reduction techniques were utilized for this study: 1. Automated exposure control. 2. Adjustment of the mA and/or kV according to patient size. 3. Use of iterative reconstruction technique. Findings: Comparison study due to was 05/20/2016. Images through the lung bases demonstrate mild cardiomegaly. Dependent subsegmental atelectasis is seen involving both lower lobes. Decreased attenuation of the liver parenchyma is seen consistent with mild fatty infiltration. A 7 mm rounded low-attenuation lesion is seen involving the right lobe of the liver which likely represents a hepatic cyst. It is unchanged. The spleen, pancreas, adrenal glands and kidneys are within normal limits. Moderate atherosclerotic calcification of the abdominal aorta is seen. The abdominal aorta tapers normally. The gallbladder is well-distended. No free fluid or free air is seen within the abdomen. There is no evidence of bowel obstruction. The appendix is well visualized and is within normal limits. Multiple diverticula are seen involving the colon. No inflammatory changes are seen in the adjacent fat. Images through the pelvis demonstrate urinary bladder distended with urine. A 3.5 cm partially calcified fibroid is seen involving the uterus, unchanged. No adnexal mass is noted. No free fluid is seen. Calcifications are seen within the pelvis consistent with phleboliths. Degenerative changes are seen involving the lower thoracic and throughout the lumbar spine and both hips. Impression: No acute abnormality is seen.
--- NOTE | 2017-04-12 11:48 | RAD ---
Indication: Pelvic pain Technique: Grayscale, color Doppler and spectral waveform ultrasound images of the pelvis obtained. Comparison: None Findings: The uterus measures 6.4 x 4.1 x 3.2 cm (longitudinal, transverse, AP) with a calcified 4.0 x 3.2 x 3.1 cm fibroid in the fundal region. The right ovary measures 2.2 x 1.0 x 1.2 cm and demonstrates evidence of blood flow. The left ovary measures 2.1 x 2.0 x 1.2 cm and demonstrates evidence of blood flow. There is a 1.2 x 1.3 cm hypoechoic lesion in the left ovary with echogenic septations. The endometrial stripe measures 2 mm and is within normal limits. Small amount of free pelvic fluid adjacent to the left ovary. Impression: 1. Calcified fibroid in the fundus of the uterus. 2. Bilateral ovaries demonstrate evidence of blood flow. 3. Suggestion of left ovarian cyst with calcified septations. Follow-up pelvic ultrasound in 6 months recommended.
[2017-04-12] MEDS ORDERED: ACETAMINOPHEN 325 MG TABLET. PO PRN (12:45)
[2017-04-12] MEDS ORDERED: ONDANSETRON PF 4 MG/2 ML VIAL. IV PRN (12:45)
[2017-04-12 15:00] VITALS: BP 125/61
[2017-04-12] MEDS ORDERED: ALBUTEROL SULFATE 2.5 MG/3 ML NEBU. NEB PRN (16:15)
[2017-04-12] MEDS ORDERED: ONDANSETRON ODT 4 MG TAB.RAPDIS. PO PRN (16:15)
[2017-04-12 16:21] VITALS: BP 120/57
[2017-04-12] MEDS: NICOTINE 7MG PATCH. TD SCH (16:58)
[2017-04-12] MEDS: amLODIPine BESYLATE 10 MG TABLET PO SCH (16:59)
[2017-04-12] MEDS: hydroCHLOROthiazide 12.5 MG CAPSULE PO SCH (16:59)
[2017-04-12] MEDS: LISINOPRIL 20 MG TABLET PO SCH (16:59)
[2017-04-12 19:57] VITALS: BP 122/59
[2017-04-12] MEDS: MORPHINE SULFATE 2 MG/ML DISP.SYRIN. IV PRN (20:21)
[2017-04-12] MEDS ORDERED: MIRTAZAPINE 15 MG TABLET PO SCH (21:00)
[2017-04-12] MEDS ORDERED: ATORVASTATIN CALCIUM 40 MG TABLET. PO SCH (21:00)
[2017-04-12 23:15] VITALS: BP 113/65
[2017-04-13] MEDS: MORPHINE SULFATE 2 MG/ML DISP.SYRIN. IV PRN ×2 (02:56→09:42)
[2017-04-13 03:11] VITALS: BP 121/61
[2017-04-13 04:34] LABS: BASO # 0.1 x10^3/uL (0.0-0.2); BASO % 1 % (0-3); EOS % 3 % (0-3); HEMATOCRIT 38.8 % (36.0-47.0); HEMOGLOBIN 12.5 g/dL (12.0-15.5); LYMPH # 2.7 x10^3/uL (1.0-4.8); LYMPH % 46 % (24-48); MEAN CORPUSCULAR HEMOGLOBIN 28 pg (25-35); MEAN CORPUSCULAR HGB CONC 32 g/dL (31-37); MEAN CORPUSCULAR VOLUME 88 fL (79-100); MONO % 8 % (0-9); NEUT % 42 % (31-73); PLATELET COUNT 273 x10^3/uL (140-400); RED CELL DISTRIBUTION WIDTH 15.1 % (11.5-14.5); WHITE BLOOD COUNT 5.8 x10^3/uL (4.0-11.0)
[2017-04-13 04:47] LABS: ALBUMIN 3.1 g/dL (3.4-5.0); ALBUMIN/GLOBULIN RATIO 0.7 (1.0-1.7); CALCIUM 8.7 mg/dL (8.5-10.1); CREATININE 0.6 mg/dL (0.6-1.0); GFR 123.8; POTASSIUM 3.4 mmol/L (3.5-5.1); TOTAL BILIRUBIN 0.4 mg/dL (0.2-1.0); TOTAL PROTEIN 7.4 g/dL (6.4-8.2)
[2017-04-13 07:00] VITALS: BP 131/58
--- NOTE | 2017-04-13 08:07 | PDOC1 ---
History and Physical Date of Admission Date of Admission DATE: 04/12/17 Identification/Chief Complaint Chief Complaint Hip pain/Side pain Problems: Source Source: Patient History of Present Illness History of Present Illness Pt says that she woke up yesterday with intense right sided pain that brought her to the emergency room. Pain is chronic but has been worse over the past week. Pt says that pain is in her hip and back. Worsened by movement, walking , breathing, talking at times when it was at it's worst, but has improved. Pt has seen Dr. Serna in the past for injection but hasn't seen in a year. She was considering getting back in with him. Past Medical History Cardiovascular: CAD, HTN, Hyperlipidemia Pulmonary: No pertinent hx CENTRAL NERVOUS SYSTEM: Other (Hx intracerebral bleed) GI: Constipation, Diverticulosis Heme/Onc: No pertinent hx Hepatobiliary: No pertinent hx Psych: No pertinent hx Musculoskeletal: Osteoarthritis Rheumatologic: No pertinent hx Infectious disease: Herpes zoster ENT: No pertinent hx Renal/: No pertinent hx Endocrine: No pertinent hx Dermatology: No pertinent hx Past Surgical History Past Surgical History: Colon Resection, Other (D&C for postmenopausal bleeding) Family History Family History: Heart Disease Social History Smoke: <1 pack per day ALCOHOL: occassional Drugs: None Current Problem List Problem List Problems Medical Problems: (1) Abdominal pain Status: Acute (2) Fibroids Status: Acute Problems: Current Medications Current Medications Current Medications Morphine Sulfate 4 mg 1X ONCE IV Last administered on 04/12/17 08:54; Start 04/12/17 at 08:45; Stop 04/12/17 at 08:47; Status DC Ondansetron HCl (Zofran) 4 mg 1X ONCE IV Last administered on 04/12/17 08:54 ; Start 04/12/17 at 08:45; Stop 04/12/17 at 08:46; Status DC Iohexol (Omnipaque 300 Mg/ml) 75 ml 1X ONCE IV Last administered on 09:55; Start 04/12/17 at 09:30; Stop 04/12/17 at 09:31; Status DC Info (Do NOT chart on this entry -- for MONITORING) 1 each PRN DAILY PRN MC SEE COMMENTS; Start 04/12/17 at 09:30; Stop 04/14/17 at 09:29 Morphine Sulfate 4 mg 1X ONCE IV Last administered on 04/12/17 10:54; Start 04/12/17 at 10:45; Stop 04/12/17 at 10:46; Status DC Ondansetron HCl (Zofran) 4 mg PRN Q8HRS PRN IV NAUSEA/VOMITING Last administered on 04/12/17 20:31; Start 04/12/17 at 12:45; Stop 04/13/17 at 12 :44 Morphine Sulfate 2 mg PRN Q2HR PRN IV PAIN Last administered on 04/13/17 02: 56; Start 04/12/17 at 12:45; Stop 04/13/17 at 12:44 Acetaminophen (Tylenol) 650 mg PRN Q4HRS PRN PO FEVER; Start 04/12/17 at 12:45 ; Stop 04/13/17 at 12:44 Nicotine (Nicoderm Cq 7mg) 1 patch DAILY TD Last administered on 04/12/17 16: 58; Start 04/12/17 at 16:00 Amlodipine Besylate (Norvasc) 10 mg DAILY PO Last administered on 04/12/17 16 :59; Start 04/12/17 at 17:00 Atorvastatin Calcium (Lipitor) 40 mg QHS PO Last administered on 04/12/17 20: 20; Start 04/12/17 at 21:00 Mirtazapine (Remeron) 15 mg QHS PO Last administered on 04/12/17 20:20; Start 04/12/17 at 21:00 Ondansetron HCl (Zofran Odt) 4 mg PRN Q6HRS PRN PO NAUSEA; Start 04/12/17 at 16:15 Lisinopril (Prinivil) 20 mg DAILY PO Last administered on 04/12/17 16:59; Start 04/12/17 at 17:00 Albuterol Sulfate (Ventolin Neb Soln) 2.5 mg PRN Q6HRS PRN NEB SHORTNESS OF BREATH; Start 04/12/17 at 16:15 Hydrochlorothiazide (Microzide) 12.5 mg DAILY PO Last administered on 16:59; Start 04/12/17 at 17:00 Active Scripts Active Zofran Odt (Ondansetron) 4 Mg Tab.rapdis 1 Tab SL Q6HRS PRN [Albuterol Sulfate] 2.5 MG/3 ML Nebu 2.5 Mg NEB PRN QID PRN Reported Lyrica (Pregabalin) 100 Mg Capsule 1 Cap PO BID Vitamin D3 (Cholecalciferol (Vitamin D3)) 5,000 Unit/1 Ml Drops 5,000 Unit PO DAILY Atorvastatin Calcium 40 Mg Tablet 1 Tab PO QHS Mirtazapine 15 Mg Tablet 1 Tab PO QHS Amlodipine Besylate 10 Mg Tablet 10 Mg PO DAILY Trazodone Hcl 100 Mg Tablet 100 Mg PO HS Lisinopril-Hctz 20-12.5 Mg Tab (Lisinopril/Hydrochlorothiazide) 1 Each Tablet 1 Tab PO DAILY Allergies Allergies: Coded Allergies: codeine (Verified Allergy, Severe, codeine, 12/31/14) ROS General: No: Chills, Night Sweats, Fatigue PSYCHOLOGICAL ROS: No: Anxiety, Depression Eyes: No Decreased vision, No Eye Pain HEENT: No: Nasal congestion, Sore Throat ALLERGY AND IMMUNOLOGY: YES: Post Nasal Drip, No: Hives Hematological and Lymphatic: No: Bleeding Problems, Blood Clots Respiratory: YES: Cough (for 1 week, improving), No: Shortness of breath, Wheezing Cardiovascular: No Chest Pain, No Palpitations, No Edema Gastrointestinal: Yes Nausea, Yes Constipation, No Vomiting, No Abdominal Pain, No Diarrhea Genitourinary: No Dysuria, No Urgency Musculoskeletal: Yes Joint Pain, No Muscle Pain Neurological: No Impaired Coord/balance, No Numbness/Tingling Skin: No Rash, No Skin Lesion Changes Physical Exam General: Alert, Oriented X3, Cooperative, No acute distress HEENT: Atraumatic, PERRLA, EOMI, Mucous membr. moist/pink Lungs: Clear to auscultation, Normal air movement Heart: no rubs, no gallops, no murmurs, other (bradycardic) Abdomen: Normal bowel sounds, Soft, No tenderness, No hepatosplenomegaly Extremities: No clubbing, No cyanosis, No edema, Other (TTP right hip) Skin: No rashes, No breakdown, No significant lesion Neuro: Normal speech, Normal tone, Sensation intact, Cranial nerves 3-12 NL Psych/Mental Status: Mental status NL, Mood NL Vitals Vitals Vital Signs Date Time Temp Pulse Resp B/P (MAP) Pulse Ox O2 Delivery O2 Flow Rate FiO2 04/13/17 03:26 100 Room Air 04/13/17 03:11 98.5 54 20 121/61 (81) 98.5 Labs Labs Laboratory Tests Test 04/12/17 08:25 04/12/17 08:45 04/13/17 03:05 04/13/17 03:55 Urine Collection Type Unknown Urine Color Yellow Urine Clarity Cloudy Urine pH 6.0 Urine Specific [place] 1.020 Urine Protein Negative mg/dL (NEG-TRACE) Urine Glucose (UA) Negative mg/dL (NEG) Urine Ketones (Stick) Negative mg/dL (NEG) Urine Blood Negative (NEG) Urine Nitrite Negative (NEG) Urine Bilirubin Negative (NEG) Urine Urobilinogen Dipstick 0.2 mg/dL (0.2 mg/dL) Urine Leukocyte Esterase Negative (NEG) Urine RBC 0 /HPF (0-2) Urine WBC 0 /HPF (0-4) Urine Squamous Epithelial Cells Few /LPF Urine Bacteria 0 /HPF (0-FEW) Urine Hyaline Casts Occasional /HPF Urine Mucus Slight /LPF White Blood Count 6.9 x10^3/uL (4.0-11.0) 5.8 x10^3/uL (4.0-11.0) Red Blood Count 4.53 x10^6/uL (3.50-5.40) 4.40 x10^6/uL (3.50-5.40) Hemoglobin 13.0 g/dL (12.0-15.5) 12.5 g/dL (12.0-15.5) Hematocrit 40.2 % (36.0-47.0) 38.8 % (36.0-47.0) Mean Corpuscular Volume 89 fL (79-100) 88 fL (79-100) Mean Corpuscular Hemoglobin 29 pg (25-35) 28 pg (25-35) Mean Corpuscular Hemoglobin Concent 32 g/dL (31-37) 32 g/dL (31-37) Red Cell Distribution Width 15.2 % (11.5-14.5) 15.1 % (11.5-14.5) Platelet Count 296 x10^3/uL (140-400) 273 x10^3/uL (140-400) Sodium Level 141 mmol/L (136-145) 139 mmol/L (136-145) Potassium Level 3.5 mmol/L (3.5-5.1) 3.4 mmol/L (3.5-5.1) Chloride Level 105 mmol/L (98-107) 102 mmol/L (98-107) Carbon Dioxide Level 26 mmol/L (21-32) 28 mmol/L (21-32) Anion Gap 10 (6-14) 9 (6-14) Blood Urea Nitrogen 18 mg/dL (7-20) 10 mg/dL (7-20) Creatinine 0.7 mg/dL (0.6-1.0) 0.6 mg/dL (0.6-1.0) Estimated GFR (Cockcroft-Gault) 103.6 123.8 BUN/Creatinine Ratio 26 (6-20) 17 (6-20) Glucose Level 113 mg/dL (70-99) 100 mg/dL (70-99) Calcium Level 8.7 mg/dL (8.5-10.1) 8.7 mg/dL (8.5-10.1) Total Bilirubin 0.2 mg/dL (0.2-1.0) 0.4 mg/dL (0.2-1.0) Aspartate Amino Transf (AST/SGOT) 15 U/L (15-37) 14 U/L (15-37) Alanine Aminotransferase (ALT/SGPT) 20 U/L (14-59) 16 U/L (14-59) Alkaline Phosphatase 58 U/L (46-116) 55 U/L (46-116) Total Protein 8.1 g/dL (6.4-8.2) 7.4 g/dL (6.4-8.2) Albumin 3.4 g/dL (3.4-5.0) 3.1 g/dL (3.4-5.0) Albumin/Globulin Ratio 0.7 (1.0-1.7) 0.7 (1.0-1.7) Lipase 213 U/L (73-393) Neutrophils (%) (Auto) 42 % (31-73) Lymphocytes (%) (Auto) 46 % (24-48) Monocytes (%) (Auto) 8 % (0-9) Eosinophils (%) (Auto) 3 % (0-3) Basophils (%) (Auto) 1 % (0-3) Neutrophils # (Auto) 2.5 x10^3uL (1.8-7.7) Lymphocytes # (Auto) 2.7 x10^3/uL (1.0-4.8) Monocytes # (Auto) 0.4 x10^3/uL (0.0-1.1) Eosinophils # (Auto) 0.2 x10^3/uL (0.0-0.7) Basophils # (Auto) 0.1 x10^3/uL (0.0-0.2) Laboratory Tests Test 04/12/17 08:25 04/12/17 08:45 04/13/17 03:05 04/13/17 03:55 Urine Collection Type Unknown Urine Color Yellow Urine Clarity Cloudy Urine pH 6.0 Urine Specific [place] 1.020 Urine Protein Negative mg/dL (NEG-TRACE) Urine Glucose (UA) Negative mg/dL (NEG) Urine Ketones (Stick) Negative mg/dL (NEG) Urine Blood Negative (NEG) Urine Nitrite Negative (NEG) Urine Bilirubin Negative (NEG) Urine Urobilinogen Dipstick 0.2 mg/dL (0.2 mg/dL) Urine Leukocyte Esterase Negative (NEG) Urine RBC 0 /HPF (0-2) Urine WBC 0 /HPF (0-4) Urine Squamous Epithelial Cells Few /LPF Urine Bacteria 0 /HPF (0-FEW) Urine Hyaline Casts Occasional /HPF Urine Mucus Slight /LPF White Blood Count 6.9 x10^3/uL (4.0-11.0) 5.8 x10^3/uL (4.0-11.0) Red Blood Count 4.53 x10^6/uL (3.50-5.40) 4.40 x10^6/uL (3.50-5.40) Hemoglobin 13.0 g/dL (12.0-15.5) 12.5 g/dL (12.0-15.5) Hematocrit 40.2 % (36.0-47.0) 38.8 % (36.0-47.0) Mean Corpuscular Volume 89 fL (79-100) 88 fL (79-100) Mean Corpuscular Hemoglobin 29 pg (25-35) 28 pg (25-35) Mean Corpuscular Hemoglobin Concent 32 g/dL (31-37) 32 g/dL (31-37) Red Cell Distribution Width 15.2 % (11.5-14.5) 15.1 % (11.5-14.5) Platelet Count 296 x10^3/uL (140-400) 273 x10^3/uL (140-400) Sodium Level 141 mmol/L (136-145) 139 mmol/L (136-145) Potassium Level 3.5 mmol/L (3.5-5.1) 3.4 mmol/L (3.5-5.1) Chloride Level 105 mmol/L (98-107) 102 mmol/L (98-107) Carbon Dioxide Level 26 mmol/L (21-32) 28 mmol/L (21-32) Anion Gap 10 (6-14) 9 (6-14) Blood Urea Nitrogen 18 mg/dL (7-20) 10 mg/dL (7-20) Creatinine 0.7 mg/dL (0.6-1.0) 0.6 mg/dL (0.6-1.0) Estimated GFR (Cockcroft-Gault) 103.6 123.8 BUN/Creatinine Ratio 26 (6-20) 17 (6-20) Glucose Level 113 mg/dL (70-99) 100 mg/dL (70-99) Calcium Level 8.7 mg/dL (8.5-10.1) 8.7 mg/dL (8.5-10.1) Total Bilirubin 0.2 mg/dL (0.2-1.0) 0.4 mg/dL (0.2-1.0) Aspartate Amino Transf (AST/SGOT) 15 U/L (15-37) 14 U/L (15-37) Alanine Aminotransferase (ALT/SGPT) 20 U/L (14-59) 16 U/L (14-59) Alkaline Phosphatase 58 U/L (46-116) 55 U/L (46-116) Total Protein 8.1 g/dL (6.4-8.2) 7.4 g/dL (6.4-8.2) Albumin 3.4 g/dL (3.4-5.0) 3.1 g/dL (3.4-5.0) Albumin/Globulin Ratio 0.7 (1.0-1.7) 0.7 (1.0-1.7) Lipase 213 U/L (73-393) Neutrophils (%) (Auto) 42 % (31-73) Lymphocytes (%) (Auto) 46 % (24-48) Monocytes (%) (Auto) 8 % (0-9) Eosinophils (%) (Auto) 3 % (0-3) Basophils (%) (Auto) 1 % (0-3) Neutrophils # (Auto) 2.5 x10^3uL (1.8-7.7) Lymphocytes # (Auto) 2.7 x10^3/uL (1.0-4.8) Monocytes # (Auto) 0.4 x10^3/uL (0.0-1.1) Eosinophils # (Auto) 0.2 x10^3/uL (0.0-0.7) Basophils # (Auto) 0.1 x10^3/uL (0.0-0.2) VTE Prophylaxis Ordered VTE Prophylaxis Devices: Yes VTE Pharmacological Prophylaxi: No Assessment/Plan Assessment/Plan Pt is a 61yo AAF admitted for "abdominal pain". Pt not having abdominal pain but having right hip pain and low back pain 1)Right hip pain- hx of OA in hips. Will get imaging and start pt on Meloxicam. 2)Low back pain- with history of following with pain management for injections. Will reimage and have pt get back in with Dr. Serna on discharge 3)Bradycardia- will get 12lead EKG. Pt asymptomatic and not on any rate lowering medications 4)Distended bladder seen on CT- will get PVR 5)HTN- well controlled with current medications of HCTZ 12.5mg, Lisinopril 20mg and Norvasc 10mg 6)HLD- will continue Atorvastatin 40mg 7)Hypokalemia- will replace 8)Left ovarian cyst- seen incidentally on U/S. Will repeat in 6 months. 9)PEM- mild 10)Hx of CAD- no active chest pain 11)Hx of punctate cerebral hemorrhage 12)Prediabetes- BS TAYA Inman MD Apr 13, 2017 08:07
[2017-04-13] MEDS ORDERED: POTASSIUM CHLORIDE 20 MEQ TABLET.ER. PO ONE (08:15)
[2017-04-13] MEDS ORDERED: POLYETHYLENE GLYCOL 3350 17 GM PACKET. PO SCH (09:00)
[2017-04-13] MEDS ORDERED: MELOXICAM 7.5 MG TABLET PO SCH (09:00)
--- NOTE | 2017-04-13 09:16 | EKG ---
[facility] [address] [place] [address] Test Date: 2017-04-13 Test Time: 09:12:05 Pat Name: FIGUEROA LUNA Department: Room: [facility] Gender: F Director Long Term Care: ROSEY : 1955 Requested By: TAYA CALLAHAN Order Number: [id number] Reading MD: Measurements Intervals [place] Rate: 52 P: 25 VT: 172 QRS: 32 QRSD: 72 T: 17 QT: 420 QTc: 393 Interpretive Statements SINUS RHYTHM ATRIAL PREMATURE COMPLEX(ES) LOW LIMB LEAD VOLTAGE NO SPECIFIC ECG ABNORMALITIES RI6.01 Unconfirmed report Compared to ECG 05/19/2016 23:05:55 Atrial abnormality no longer present
[2017-04-13] MEDS: LISINOPRIL 20 MG TABLET PO SCH (09:44)
[2017-04-13] MEDS: NICOTINE 7MG PATCH. TD SCH (09:44)
[2017-04-13] MEDS: hydroCHLOROthiazide 12.5 MG CAPSULE PO SCH (09:44)
[2017-04-13] MEDS: amLODIPine BESYLATE 10 MG TABLET PO SCH (09:45)
[2017-04-13 11:00] VITALS: BP 119/62
[2017-04-13 15:00] VITALS: BP 122/67
[2017-04-13] MEDS ORDERED: FLU VACC QS2017-18 (36MOS+)/PF 0.5 ML SYRINGE. VAX IM ONE (15:00)
--- NOTE | 2017-04-13 16:17 | RAD ---
3 views of the lumbar spine 04/13/2017 Indication: Low back pain and bilateral hip pain, right greater than left. Comparison study: CT of the abdomen and pelvis yesterday. Discussion: No evidence of acute fracture or alignment abnormality lumbar spine is identified. Vertebral body heights are maintained. Mild degenerative disc space narrowing is seen at L4-L5 and L5-S1. Facet arthrosis is also noted in the inferior lumbar spine. No spondylolysis or spondylolisthesis is seen. No acute soft tissue changes are identified. Calcified fibroid again noted in the pelvis. Impression: Mild degenerative changes of the lumbar spine as described without evidence of acute osseous abnormality.
--- NOTE | 2017-04-13 16:22 | RAD ---
AP pelvis, 2 views each hip 04/13/2017 2:00 AM Indication: Bilateral hip pain, right greater the left Comparison: CT of the abdomen and pelvis, yesterday Findings: No evidence of fracture or dislocation is identified. Articular surfaces are uninterrupted. Degenerative changes of the inferior lumbar spine are noted. Surgical changes noted in the left pelvis. Calcified fibroid noted in the pelvis. No acute appearing soft tissue changes are identified. Some sclerosis at the pubic symphysis is noted. Sclerosis involving the sacroiliac joints is noted, right greater than left. Similar finding are noted on prior CT studies. Impression: 1.No evidence of acute osseous abnormality is seen 2. Sclerosis of the bilateral sacroiliac joints right greater than left and sclerosis of the pubic symphysis. Findings could represent degenerative joint disease or be secondary to other forms arthritis including but not limited to psoriatic arthritis, or reactive arthritis
[2017-04-13] MEDS ORDERED: MELO7.5T29 PO (16:42)
[2017-04-13] MEDS ORDERED: POLY17PO3 PO (16:42)
--- NOTE | 2017-04-13 16:45 | PDOC3 ---
*Discharge Summary* Date of Admission: Apr 12, 2017 Date of Discharge: Apr 13, 2017 Admitting Diagnosis Problems Medical Problems: (1) Abdominal pain Status: Acute (2) Fibroids Status: Acute Problems: Final Diagnosis Sacroiliac arthritis, Bradycardia, Distended bladder with increased PVR, HTN, HLD, Hypokalemia, Left ovarian cyst, PEM-mild, Hx of CAD, Hx of punctate cerebral hemorrhage, Prediabetes CONSULTS None Procedures CT Abdomen/pelvis- distended urinary bladder, 3.5cm unchanged fibroid. No acute disease U/S pelvis- left ovarian cyst with calcified septation. Follow up ultrasound in 6 months Bilateral hip xray- sclerosis of bilateral SI joints R >> L and sclerosis of pubic symphysis Lumbar spine xray- mild degenerative changes in lumbar spine Brief Hospital Course Pt is a 61yo AAF admitted for "abdominal pain". Pt not having abdominal pain but having right hip pain and low back pain 1)Right hip pain- xrays showing arthritis in SI joints. Pt has followed with pain management in the past, will get her back in with Dr. Serna. Pt started on Meloxicam. 2)Low back pain- xrays showing mild DDD. Pt has received injections in the past from Dr. Serna 3)Bradycardia- Pt asymptomatic and not on any rate lowering medications, 12 lead EKG pending 4)Distended bladder seen on CT- with increased PVR of 173cc. Will get pt in with urology. Likely chronic issue 5)HTN- well controlled with current medications of HCTZ 12.5mg, Lisinopril 20mg and Norvasc 10mg 6)HLD- pt continued on Atorvastatin 40mg 7)Hypokalemia- replaced 8)Left ovarian cyst- seen incidentally on U/S. Will repeat in 6 months. 9)PEM- mild 10)Hx of CAD- no active chest pain 11)Hx of punctate cerebral hemorrhage 12)Prediabetes- BS stable Disposition/Orders: D/C to Home CONDITION AT DISCHARGE: Improved Diet: Cardiac Home Meds Active Scripts Polyethylene Glycol 3350 (POLYETHYLENE GLYCOL 3350) 17 Gm Powd.pack, 17 GM PO DAILY Y for CONSTIPATION for 30 Days, #30 PKT Prov:TAYA ELLISON MD 04/13/17 Meloxicam (MELOXICAM) 7.5 Mg Tablet, 7.5 MG PO DAILY for 30 Days, #30 TAB Prov:TAYA ELLISON MD 04/13/17 Ondansetron (ZOFRAN ODT) 4 Mg Tab.rapdis, 1 TAB SL Q6HRS Y for NAUSEA, #12 TAB Prov:NENA NYE MD 05/20/16 [Albuterol Sulfate] 2.5 MG/3 ML NEBU No Conflict Check, 2.5 MG NEB PRN QID Y for SHORTNESS OF BREATH Prov:TAYA DANIEL MD 10/23/14 Reported Medications Cholecalciferol (Vitamin D3) (VITAMIN D3) 5,000 Unit/1 Ml Drops, 5000 UNIT PO DAILY 08/10/16 Atorvastatin Calcium (ATORVASTATIN CALCIUM) 40 Mg Tablet, 1 TAB PO QHS, #90 TAB 3 Refills 08/10/16 Mirtazapine (MIRTAZAPINE) 15 Mg Tablet, 1 TAB PO QHS, #30 TAB 3 Refills 08/10/16 Amlodipine Besylate (AMLODIPINE BESYLATE) 10 Mg Tablet, 10 MG PO DAILY, TAB 08/10/16 Lisinopril/Hydrochlorothiazide (LISINOPRIL-HCTZ 20-12.5 MG TAB) 1 Each Tablet, 1 TAB PO DAILY for FOR HYPERTENSION, #30 TAB 0 Refills 11/06/13 Discontinued Reported Medications Pregabalin (LYRICA) 100 Mg Capsule, 1 CAP PO BID, #60 CAP 2 Refills 08/24/16 Trazodone Hcl (TRAZODONE HCL) 100 Mg Tablet, 100 MG PO HS, TAB 10/20/14 Scheduled Amlodipine Besylate (Amlodipine Besylate), 10 MG PO DAILY, (Reported) Atorvastatin Calcium (Atorvastatin Calcium), 1 TAB PO QHS, (Reported) Cholecalciferol (Vitamin D3) (Vitamin D3), 5,000 UNIT PO DAILY, (Reported) Lisinopril/Hydrochlorothiazide (Lisinopril-Hctz 20-12.5 Mg Tab), 1 TAB PO DAILY, (Reported) Meloxicam (Meloxicam), 7.5 MG PO DAILY Mirtazapine (Mirtazapine), 1 TAB PO QHS, (Reported) Scheduled PRN Ondansetron (Zofran Odt), 1 TAB SL Q6HRS PRN for NAUSEA Polyethylene Glycol 3350 (Polyethylene Glycol 3350), 17 GM PO DAILY PRN for CONSTIPATION [Albuterol Sulfate], 2.5 MG NEB PRN QID PRN for SHORTNESS OF BREATH Discontinued Medications Pregabalin (Lyrica), 1 CAP PO BID, (Reported) Trazodone Hcl (Trazodone Hcl), 100 MG PO HS, (Reported) Scripts Polyethylene Glycol 3350 (POLYETHYLENE GLYCOL 3350) 17 Gm Powd.pack 17 GM PO DAILY Y for CONSTIPATION for 30 Days, #30 PKT Prov: TAYA ELLISON MD 04/13/17 Meloxicam (MELOXICAM) 7.5 Mg Tablet 7.5 MG PO DAILY for 30 Days, #30 TAB Prov: TAYA ELLISON MD 04/13/17 PCP Follow up with Dr. Ellison in the next 10-14 days Time Spent Total time spent with patient [] minutes for coordination of care, counseling, and education. TAYA ELLISON MD Apr 13, 2017 16:45
== END 2017-04-13 19:27 | disposition home or self-care (01) | DRG 552 ==
LOC: ER 08:18 → 6 SOUTH 11:13
PROVIDERS: ADMIT Family Medicine; ATTEND Family Medicine
DX: M46.1 Sacroiliitis, not elsewhere classified (principal); E44.1 Mild protein-calorie malnutrition; M16.0 Bilateral primary osteoarthritis of hip; D25.9 Leiomyoma of uterus, unspecified; E78.5 Hyperlipidemia, unspecified; E87.6 Hypokalemia; F17.210 Nicotine dependence, cigarettes, uncomplicated; I10 Essential (primary) hypertension; I25.10 Atherosclerotic heart disease of native coronary artery without angina pectoris; N83.202 Unspecified ovarian cyst, left side; N32.89 Other specified disorders of bladder; F12.90 Cannabis use, unspecified, uncomplicated; M54.5 Low back pain; Z88.8 Allergy status to other drugs, medicaments and biological substances; Z82.49 Family history of ischemic heart disease and other diseases of the circulatory system; Z90.49 Acquired absence of other specified parts of digestive tract; Z68.26 Body mass index [BMI] 26.0-26.9, adult
CPT/HCPCS: 36415; 72100; 73521; 74177; 76830; 76856; 80053; 81001; 83690; 85025; 85027; 90686; 93005; J2270; J2405; Q9967

== ENCOUNTER → 2017-04-28 | Outpatient (CLI) | payer MEDICARE, MEDICAID ==
[~2017-04-28] MED LIST changes: -AMLO10TA2 PO; -AMLO5TAB4 PO; -ATOR40TA59 PO; -Albuterol Sulfate NEB; -CELE200C PO; -CHOL500024 PO; -CYCL10TA2 PO; -DICL75TA PO; -HYDR-971 PO; +IOHEXOL 180 MG/ML 10 ML VIAL.; -LEXAPRO10 MG PO; -LISI1TAB5 PO; -MIRT15TA3 PO; -MULT-18 PO; -NITR0.4T22 SL; -OMEP40CA5 PO; -ONDA4TAB10 SL; -POTASSIUM CHLO10 MEQ PO; -PREG100C PO; -RANI150C PO; -TRAZ100T12 PO; +methylPREDNISolone ACETATE 40 MG/ML VIAL.; +methylPREDNISolone ACETATE 80 MG/ML VIAL.
== END | disposition home or self-care (01) ==
LOC: PNCL 08:25
DX: M51.16 Intervertebral disc disorders with radiculopathy, lumbar region (principal); M47.26 Other spondylosis with radiculopathy, lumbar region; I10 Essential (primary) hypertension; F41.9 Anxiety disorder, unspecified; K21.9 Gastro-esophageal reflux disease without esophagitis; Z87.891 Personal history of nicotine dependence; Z90.49 Acquired absence of other specified parts of digestive tract; Z83.3 Family history of diabetes mellitus; Z82.49 Family history of ischemic heart disease and other diseases of the circulatory system; Z88.6 Allergy status to analgesic agent
CPT/HCPCS: 62323; J1030; J1040

== ENCOUNTER → 2017-05-12 | Outpatient (CLI) | payer MEDICARE, MEDICAID | END | disposition home or self-care (01) | LOC: PNCL 08:34 | DX: M51.16 Intervertebral disc disorders with radiculopathy, lumbar region (principal); M47.896 Other spondylosis, lumbar region | CPT/HCPCS: 99212 ==

== ENCOUNTER → 2017-08-16 | Outpatient (CLI) | payer MEDICARE, MEDICAID | END | disposition home or self-care (01) | LOC: PNCL 10:10 | DX: M51.16 Intervertebral disc disorders with radiculopathy, lumbar region (principal); M47.26 Other spondylosis with radiculopathy, lumbar region | CPT/HCPCS: 62323; J1030; J1040; Q9965 ==

== ENCOUNTER → 2017-08-31 | Outpatient (CLI) | payer MEDICARE, MEDICAID ==
[~2017-08-31] MED LIST changes: -methylPREDNISolone ACETATE 80 MG/ML VIAL.
== END | disposition home or self-care (01) ==
LOC: PNCL 09:51
DX: M51.16 Intervertebral disc disorders with radiculopathy, lumbar region (principal); M47.26 Other spondylosis with radiculopathy, lumbar region; I10 Essential (primary) hypertension; K21.9 Gastro-esophageal reflux disease without esophagitis; F41.9 Anxiety disorder, unspecified; F17.200 Nicotine dependence, unspecified, uncomplicated; Z90.49 Acquired absence of other specified parts of digestive tract; Z82.49 Family history of ischemic heart disease and other diseases of the circulatory system; Z83.3 Family history of diabetes mellitus; Z88.5 Allergy status to narcotic agent
CPT/HCPCS: 62323; J1030; Q9965

== ENCOUNTER → 2018-09-16 | Outpatient (CLI) | payer MEDICARE, MEDICAID ==
[2017-10-13 15:00] VITALS: BP 134/74
[~2018-09-16] MED LIST changes: +ACET500T68 PO; +AMLO10TA8 PO; +AMLO5TAB4 PO; +ASPI-482 PO; +ATOR40TA59 PO; +Albuterol Sulfate NEB; +CELE200C PO; +CHOL500024 PO; +CYCL10TA2 PO; +DICL75TA PO; +HYDR-3164 PO; -IOHEXOL 180 MG/ML 10 ML VIAL.; +IOHEXOL 180 MG/ML 10 ML VIAL. ONE; +LEXAPRO10 MG PO; +LINZESS145 MCG PO; +LISI1TAB5 PO; +MELO7.5T29 PO; +MIRT15TA3 PO; +MULT-18 PO; +NITR0.4T22 SL; +OMEP40CA5 PO; +ONDA4TAB10 SL; +POLY17PO28 PO; +POTA10TA12 PO; +PREG100C PO; +RANI150C PO; +TRAZ-118 PO; +TRAZ-86 PO; -methylPREDNISolone ACETATE 40 MG/ML VIAL.; +methylPREDNISolone ACETATE 40 MG/ML VIAL. ONE; +methylPREDNISolone ACETATE 80 MG/ML VIAL. ONE
--- NOTE | 2018-09-16 18:38 | PAIN ---
DATE OF SERVICE: 09/16/2018 PROGRESS NOTE FOR PAIN CLINIC DIAGNOSES: Lumbar radiculopathy with lumbar spinal stenosis, lumbar degenerative disk disease and lumbar spondylosis. HISTORY OF PRESENT ILLNESS: The patient is a 63-year-old female who returns for followup status post lumbar epidural steroid injection x 2, last seen on 08/31/2017. The patient did very well with about 75% improvement overall until April 2018. The pain began to return gradually, not a result of any specific new injury or accident. Before that, she increased her distance walking with greater ability, doing work activities, household activities, traveling with greater ease and comfort, sleeping better. She reports it is beginning to awaken her from sleep again with pain in the low back, in the right lower extremity, primarily in the posterior gluteus, posterior lateral thigh, lateral anterior thigh, medial thigh, medial lower leg, some on the left, but mostly on the right side. The patient reports her right leg gives out at times. Over the past month or so, it is significantly more painful and easily fatigued with walking or standing, better with sitting or lying down again, but it had been waking her from sleep. The patient reports over the past week, her pain is a 10 on a scale of 10 at its worst, 10 on average and 10 at its least and is a 10 today. The patient reports it is aching, sharp, dull in the back with radiating pain in the right leg greater than the left, but present bilaterally. The patient reports no new motor or sensory deficits, no new bowel or bladder incontinence or other complaints. PHYSICAL EXAMINATION: VITAL SIGNS: The patient's blood pressure is 133/72, pulse 50, respirations 16, temperature 97.9 degrees Fahrenheit. Height is 5 feet 1 inch, weight is 119 pounds. GENERAL: The patient is awake, alert, oriented, appropriate, very pleasant demeanor. HEENT: Head shows normocephalic, atraumatic. Extraocular movements are intact and symmetrical. Oral cavity: Mucous membranes moist and pink. Dentition is intact. NECK: Shows anterior throat supple without palpable lymphadenopathy noted. Swallow reflex symmetrical. CHEST: Shows normal on inspection. Breath sounds clear to auscultation bilaterally. HEART: Shows S1, S2 clear. No murmurs auscultated. ABDOMEN: Soft, nontender, nondistended. No palpable organomegaly is noted. No rebound or guarding demonstrated. BACK: Shows spine grossly in the midline. Slight exaggeration of thoracic kyphosis and minor flattening of lumbar lordotic curvature. Lumbar paraspinous muscle shows symmetrical on inspection, with palpation shows some moderate tenderness diffusely, but without radiation. The patient has good rotational motion of lumbar spine, both laterally as well as extension and flexion without significant difficulty. EXTREMITIES: The patient's lower extremities show deep tendon reflexes at 2+ in the patellar and 1+ tendo calcaneus tendons are equal. Motor exam is strong with 5/5 dorsiflexion, extension, quadriceps and hamstring flexion symmetrical. Peripheral pulses are 1+ posterior tibial. No peripheral edema is noted. Options were discussed with the patient. The patient's old chart was reviewed as her current medication regimen updated. Current review of systems updated today as well. We will proceed with a lumbar epidural steroid injection with fluoroscopic guidance today. Risks were again discussed including, but not limited to, bleeding, infection, possibility of epidural hematoma, subsequent neurological compromise, dural puncture, headaches, spinal cord and/or nerve damage, side effects of steroid medication and poor results regarding pain control. The patient understands and wished to proceed. The patient will return to the clinic in approximately 2 weeks for followup. She was counseled as to return appointment, activity level and side effects to be aware of. DIAGNOSES: Lumbar radiculopathy with lumbar degenerative disk disease, lumbar spinal stenosis and lumbar spondylosis. PROCEDURE: Lumbar epidural steroid injection, translaminar approach at L4-L5 level using C-arm fluoroscopic guidance under sterile prep and drape using local anesthetic. MEDICATION INJECTED: A total of 120 mg Depo-Medrol plus 10 mL of preservative-free normal saline and 2 mL of Isovue for contrast. CONDITION ON DISCHARGE: Stable. The patient tolerated the procedure well, had no complications. JAVIER BA MD DR: RADHIKA/reddy JOB#: [id number] / [id number]
== END ==
LOC: PNCL 10:18
PROVIDERS: ATTEND Anesthesiology
DX: M51.16 Intervertebral disc disorders with radiculopathy, lumbar region (principal); M48.061 Spinal stenosis, lumbar region without neurogenic claudication; M47.26 Other spondylosis with radiculopathy, lumbar region
CPT/HCPCS: 62323; J1030; J1040; Q9965

== ENCOUNTER → 2018-09-30 | Outpatient (CLI) | payer MEDICARE, MEDICAID ==
[2017-10-13 15:00] VITALS: BP 134/74
--- NOTE | 2018-10-01 01:20 | PAIN ---
DATE OF SERVICE: 09/30/2018 PROGRESS NOTE FOR PAIN CLINIC: DIAGNOSES: Lumbar radiculopathy with lumbar degenerative disk disease, lumbar spinal stenosis and spondylosis. HISTORY OF PRESENT ILLNESS: The patient is a 63-year-old female who returns for followup status post lumbar epidural steroid injection x 1. The patient reports only about 20% improvement in the low back and right lower extremity pain. The patient reports still significant pain, has been waking her from sleep at night, especially last night it was causing quite a bit of pain. Prior to that, the first week was doing fairly well, but then the pain returned fairly abruptly in the low back, right leg, right posterior gluteus, posterolateral thigh, lateral anterior thigh, anterior medial thigh and some in the left posterior calf as well. The patient reports the pain is 8 on a scale of 10 at its worst, 8 on average, 8 at its least and is an 8 today. The patient reports it is aching, dull, shooting, sometimes sharp and worse with lying down. The patient reports no new motor or sensory deficits, no new bowel or bladder incontinence or other complaints. PHYSICAL EXAMINATION: VITAL SIGNS: The patient's blood pressure 107/68, pulse 58, respirations 18, temperature 98.4 degrees Fahrenheit, height is 5 feet 1 inch, weight 117 pounds. GENERAL: The patient is awake, alert, oriented, appropriate, very pleasant demeanor. HEENT: Head shows normocephalic, atraumatic. Extraocular movements are intact and symmetrical. Oral cavity: Mucous membranes moist and pink. Dentition is intact. NECK: Shows anterior throat supple without palpable lymphadenopathy noted. Swallow reflex symmetrical. CHEST: Shows normal on inspection. Breath sounds clear to auscultation bilaterally. HEART: Shows S1, S2 clear. No murmurs auscultated. ABDOMEN: Obese, but soft, nontender, nondistended. BACK: Shows spine grossly in the midline. Slight exaggeration of thoracic kyphosis and minor flattening of lumbar lordotic curvature. Lumbar paraspinous musculature shows symmetrical on inspection, on palpation shows some moderate tenderness diffusely bilaterally, but only diffusely without significant radiation. EXTREMITIES: Lower extremities show deep tendon reflexes 2+ in the patellar and 1+ tendo calcaneus tendons. Motor exam is strong with 5/5 dorsiflexion, extension, equal and symmetrical. No peripheral edema is noted. Options were discussed with the patient. The patient's old chart was reviewed as well as her current medication regimen updated. Current review of systems updated today as well. We will proceed with a second in a series of lumbar epidural steroid injection today with fluoroscopic guidance. Risks were again discussed including, but not limited to bleeding, infection, possibility of epidural hematoma, subsequent neurologic compromise, dural puncture headaches, spinal cord and/or nerve damage, side effects of steroid medication and poor results regarding pain control. The patient understands and wished to proceed. The patient will return to clinic in approximately 2 weeks for followup, was counseled as to return appointment, activity level and side effects to be aware of. DIAGNOSES: Lumbar radiculopathy with lumbar degenerative disk disease, lumbar spinal stenosis and spondylosis. PROCEDURE: Lumbar epidural steroid injection, translaminar approach L4-L5 level using C-arm fluoroscopic guidance under sterile prep and drape using local anesthetic. MEDICATION INJECTED: A total of 120 mg Depo-Medrol plus 10 mL of preservative-free normal saline and 2 mL of Isovue for contrast. CONDITION AT DISCHARGE: Stable. The patient tolerated procedure well, had no complications. JAVIER BA MD DR: RADHIKA/reddy JOB#: [id number] / [id number]
== END ==
LOC: PNCL 09:26
PROVIDERS: ATTEND Anesthesiology
DX: M51.16 Intervertebral disc disorders with radiculopathy, lumbar region (principal); M48.061 Spinal stenosis, lumbar region without neurogenic claudication; M47.26 Other spondylosis with radiculopathy, lumbar region
CPT/HCPCS: 62323; J1030; J1040; Q9965